=== PATIENT | female | born 1995 | race Caucasian/White ===

== ENCOUNTER 2020-07-09 15:55 | Emergency (ER) | payer MEDICAID, SELFPAY ==
[2020-07-09 16:21] VITALS: BP 142/75; PULSE 97; RESP 16; TEMP 36.8; O2SAT 100; BMI 30.4
[2020-07-09] MEDS: oxyCODONE HCl Immed Release 5 MG TABLET PO (19:10)
[2020-07-09] MEDS: Amoxicillin/Potassium Clav 875 MG TABLET PO (19:10)
[2020-07-09] MEDS: Lidocaine HCl 2 % MPF 5 ML VIAL 10 ML SUBCUT (19:11)
--- NOTE | 2020-07-09 19:21 | ED.SKABFB ---
HPI - Skin/Abscess/Foreign Bdy General Chief complaint: Skin/Abscess/Foreign Body Stated complaint: abcess Time Seen by Provider: 07/09/20 17:49 Source: patient Mode of arrival: ambulatory Limitations: other (Hearing impaired, requires seismic interpreter) History of Present Illness HPI narrative: 25-year-old female with no significant past medical history, hearing impaired requires seismic interpreter, presents from urgent care for abscess to the left labia. She noticed swelling 3 days ago, this is the 1st time she has ever had an abscess, and presents today because the pain and swelling has increased. The pain is so great that she cannot wear pants. She does not report any fevers, chills, risk for sexually transmitted infection, chest pain or pressure, palpitations, shortness of breath, abdominal pain, abdominal distention, dysuria, hematuria, nausea, vomiting, diarrhea, constipation, or any other concerning symptoms. MD complaint: abscess/boil Onset (ago): day(s) (3) Tetanus up to date: yes Location: genitals Severity: severe Severity scale (1-10): 10 Quality: burning, aching and constant Pain Consistency: constant Relieving factors: none Exacerbating factors: palpation and movement Context: none Associated symptoms: denies other symptoms Treatments prior to arrival: other (Urgent care visit) Related Data Previous Rx's Medication Instructions Recorded amoxicillin-pot clavulanate 1 tab PO Q12H 10 Days #20 tab 07/09/20 [Augmentin] doxycycline monohydrate 100 mg PO BID 10 Days #20 cap 07/09/20 oxycodone 5 mg PO Q8H PRN #10 tab 07/09/20 Allergies Allergy/AdvReac Type Severity Reaction Status Date / Time No Known Allergies Allergy Verified 07/09/20 16:25 [No Known Allergies*] Review of Systems Review of Systems: Constitutional: No Fever, No Chills ENT/Mouth: No sore throat, No Rhinorrhea Eyes: No Eye Pain, No Swelling, No Redness Cardiovascular: No Chest Pain, No SOB Respiratory: No Cough, No Sputum Gastrointestinal: No Nausea, No Vomiting, No Diarrhea, No abdominal Pain Genitourinary: No Dysuria, No Hematuria Musculoskeletal: No joint pain, No Myalgias, No Joint Swelling Skin: Positive abscess and swelling to the left groin, No Skin Lesions Neuro: No Weakness, No Numbness, No Loss of Consciousness, No Dizziness, No Headache Psych: No Anxiety, No Depression, No SI/HI/AH/VH Heme/Lymph: No Bruising, No Bleeding,No Lymphadenopathy Endocrine: No Polyuria, No Polydipsia Yes all other systems are reviewed and are negative [facility] Past Medical History Attestation statement: The following information was validated with the patient. Source: old records reviewed Medical History Deaf Social History Social History Advance Directives: No Advance Directives Information Provided: Yes Physical Exam Vital Signs: Vital Signs: Last Vital Signs Temp 98.2 F 07/09/20 16:21 Pulse 97 07/09/20 16:21 Resp 16 07/09/20 16:21 BP 142/75 H 07/09/20 16:21 Pulse Ox 100 07/09/20 16:21 Body Mass Index 30.4 Appearance: Alert. Oriented X3. No acute distress. Eyes: Pupils equal, round and reactive to light. ENT: Pharynx normal. Neck: Normal inspection. Neck supple. CVS: Normal heart rate and rhythm. Pulses normal. Respiratory: No respiratory distress. Breath sounds normal. Abdomen: Soft and nontender. Skin: 5 cm x 6 cm area of induration to the left groin, does involve the labia majora without involving the labia minora, otherwise all other Skin warm and dry. Normal skin color. Normal skin turgor. Extremities: No lower extremity edema. Neuro: No motor deficit. No sensory deficit. Course Course Course Narrative: 25-year-old female presents with cellulitis and abscess to the left groin. Plan of care is to I&D and packed the area. Patient is hard of hearing, seismic interpreter at bedside throughout her entire duration in the emergency department. Prepped and draped in sterile fashion, Patient tolerated procedure well, did have some pain during initial exam which alleviated after lidocaine. Patient will return in 4 days to have packing removed. Does understand complications with doxycycline and sun exposure, and was able to articulate signs and symptoms indicating need for emergent intervention. Patient indicated understanding of discharge instructions and agrees to plan of care discharge home. Procedures Abscess I/D Site: other (Groin) Side (if applicable): left Local Anesthetic: lidocaine 2% Amount of anesthesia used (mL): 10 Technique: incised with blade Amount of fluid expressed (mL): 20 Sent for culture/gram staining?: Yes Irrigation: No Packing used?: iodoform Complications: pain MDM - Skin/Abscess/Foreign Bdy Differential Diagnosis Differential diagnosis: Likely abscess of skin or subcutaneous tissue Medical Records Attestation: I reviewed the patient's medical records. Discharge Plan Discharge Clinical Impression: Encounter for incision and drainage procedure Cellulitis Qualifiers: Site of cellulitis: other site Qualified Code(s): L03.818 - Cellulitis of other sites Abscess of skin or subcutaneous tissue Qualifiers: Site of cutaneous abscess: other site Qualified Code(s): L02.818 - Cutaneous abscess of other sites Patient Disposition: Home, Self-Care Instructions: Cellulitis (ED), Abscess (ED), Abscess Follow-up (ED), Abscess Incision and Drainage (DC) Additional Instructions: You were evaluated for swelling to the left groin. You had a large abscess which we drained and packed. Please keep the packing in place until you return in 3 days for packing removal. You may change the dressing as needed, you may expect fluid to continue to drain from that site. Do not soak in a tub, swim, or expose the area to water for long periods of time. You may shower, and clean with soap and water. I prescribed doxycycline and Augmentin. These medications are antibiotics. Please take these medications as directed and complete the entire course. Do not expose yourself to the sunshine. When you take doxycycline, a normal side of effect of this medication is a significant skin reaction when exposed to sun. Please wear a hat, and long sleeves if planning on going outdoors while taking this medication. I prescribed oxycodone for pain management. This medication is a narcotic and has high risk for addiction and abuse. Do not drive or operate machinery while taking this medication. Medication can increase risk for falls, cause drowsiness, and delayed reaction time. Do not make important decisions while taking this medication. This medication can also cause constipation. Use MiraLax and/or Colace as needed to help soften stools. Drink plenty of fluids. If you notice fevers, chills, nausea, and vomiting or any other concerning symptoms please return to the emergency department immediately as these are signs indicating infection. Thank you for choosing this emergency department for evaluation. Please follow-up with primary care physician as needed. Return to the emergency department for any new, concerning, or worsening symptoms. Prescriptions: New oxycodone 5 mg tablet 5 mg PO Q8H PRN (Reason: pain) Qty: 10 RF: 0 amoxicillin-pot clavulanate [Augmentin] 875-125 mg tablet 1 tab PO Q12H 10 Days Qty: 20 RF: 0 doxycycline monohydrate 100 mg capsule 100 mg PO BID 10 Days Qty: 20 RF: 0
== END 2020-07-09 19:43 | disposition home or self-care (01) ==
PROVIDERS: Emergency Provider Emergency Medicine; PCP Family Medicine
DX: L02.214 Cutaneous abscess of groin (principal); L03.314 Cellulitis of groin
CPT/HCPCS: 10060; 87071; 87205; 99284

== ENCOUNTER 2020-07-13 13:10 | Emergency (ER) | payer MEDICAID, SELFPAY ==
[2020-07-13 13:14] VITALS: BP 136/77; PULSE 93; RESP 18; TEMP 37.2; O2SAT 99; BMI 30.4
--- NOTE | 2020-07-13 13:26 | PC.NURSE ---
PT HERE FOR WOUND CHECK TO HEATHER AREA THAT HAS SOME PACKING THAT MAY BE FALLING OUT. PT STATES THIS MORNING SHE DID NOT EAT AND TOOK AN OXYCODONE, FELT NAUSEAS AND FELT DIZZY AND FELL HITTING HER NOSE AND FOREHEAD. NO LOC. NO LACERATIONS OR BRUISING NOTED TO FACE.
--- NOTE | 2020-07-13 14:33 | PC.NURSE ---
ASSISTED PA JIA WITH REMOVAL OF PACKING FROM HEATHER AREA. PT TOLERATED PROCEDURE WELL. NO SIGNS OF INFECTION, NO FOUL DISCHARGE OR SWELLING.
--- NOTE | 2020-07-13 14:33 | ED.SKABFB ---
HPI - Skin/Abscess/Foreign Bdy General Chief complaint: Skin/Abscess/Foreign Body Stated complaint: WOUND CHECK AND FALL Time Seen by Provider: 07/13/20 14:33 History of Present Illness HPI narrative: Patient presents for packing removal wound check of perineal abscess that was drained 2 days ago, patient says it is feeling very improved, no fever no chills Related Data Previous Rx's Medication Instructions Recorded amoxicillin-pot clavulanate 1 tab PO Q12H 10 Days #20 tab 07/09/20 [Augmentin] doxycycline monohydrate 100 mg PO BID 10 Days #20 cap 07/09/20 oxycodone 5 mg PO Q8H PRN #10 tab 07/09/20 Allergies Allergy/AdvReac Type Severity Reaction Status Date / Time No Known Allergies Allergy Verified 07/09/20 16:25 [No Known Allergies*] Review of Systems Review of Systems: Here for wound check Negatives are no fever no chills no dizziness no weakness no increased pain and swelling no spreading redness no abdominal pain no dysuria Yes all other systems are reviewed and are negative [facility] Past Medical History Source: nursing notes reviewed Medical History Deaf Social History Social History Advance Directives: No Advance Directives Information Provided: No Physical Exam Vital Signs: Vital Signs: Last Vital Signs Temp 98.9 F 07/13/20 13:14 Pulse 93 07/13/20 13:14 Resp 18 07/13/20 13:14 BP 136/77 07/13/20 13:14 Pulse Ox 99 07/13/20 13:14 Body Mass Index 30.4 General appearance no acute distress A&O x3 Head is normocephalic atraumatic Neck is supple Abdomen soft nontender The perineal exam shows packing in place, no fluctuance no surrounding erythema no other lesions or wounds Extremities full range of motion x4 Course Course Course Narrative: Packing is removed and new dressing applied and patient is discharged The wound had no fluctuance no significant discharge when expressed and no evidence of surrounding cellulitis Discharge Plan Discharge Clinical Impression: Visit for wound check Patient Disposition: Home, Self-Care Additional Instructions: Wound looks very improved Okay to warm soaks in bathtub Return any time for spreading redness, worse pain and swelling, fever, any worse condition or any concerns Complete all antibiotics Prescriptions: No Action oxycodone 5 mg tablet 5 mg PO Q8H PRN (Reason: pain) Qty: 10 RF: 0 amoxicillin-pot clavulanate [Augmentin] 875-125 mg tablet 1 tab PO Q12H 10 Days Qty: 20 RF: 0 doxycycline monohydrate 100 mg capsule 100 mg PO BID 10 Days Qty: 20 RF: 0
[2020-07-13] MEDS: oxyCODONE HCl Immed Release 5 MG TABLET PO (14:42)
[2020-07-13] MEDS: Ibuprofen 600 MG TABLET PO (14:42)
== END 2020-07-13 14:50 | disposition home or self-care (01) ==
PROVIDERS: Emergency Provider Emergency Medicine; PCP Family Medicine
DX: Z48.00 Encounter for change or removal of nonsurgical wound dressing (principal); Z79.899 Other long term (current) drug therapy
CPT/HCPCS: 99284

== ENCOUNTER 2021-11-29 13:38 | Emergency (ER) | payer MEDICAID, SELFPAY ==
--- NOTE | ~2021-11-29 | US_ITS ---
EXAMINATION: US DIAGNOSTIC ULTRASOUND BREAST, RIGHT CLINICAL INFORMATION: Breast pain. COMPARISON: None. TECHNIQUE: Ultrasound of the breast is performed with real-time adams scale imaging and color Doppler. FINDINGS: The patient directs the toys and games hand finisher to 11:00, 1 cm from nipple. This exam demonstrates a complex solid cystic structure. Measurement 2.1 x 0.8 x 2.9 cm. There is peripheral vascularity but no convincing evidence of increased vascularity on the imaging submitted. The lesion is characterized by more solid internal appearance with peripheral fluid density. This could represent a markedly dilated duct US/US breast RT limited IMPRESSION: Abnormality where the patient directs the toys and games hand finisher. A mixed solid cystic lesion of uncertain etiology ASSESSMENT: BI-RADS 4: Suspicious RECOMMENDATION: Ultrasonographic biopsy/drainage This patient's information was entered into a reminder system with a target due date for their next mammogram.
[2021-11-29 14:10] VITALS: BMI 25.0
--- NOTE | 2021-11-29 14:10 | ECG_ITS ---
Test Reason : CHEST PAIN Blood Pressure : / mmHG Vent. Rate : 070 BPM Atrial Rate : 070 BPM P-R Int : 132 ms QRS Dur : 080 ms QT Int : 406 ms P-R-T Axes : 059 058 059 degrees QTc Int : 438 ms Normal sinus rhythm with sinus arrhythmia Normal ECG No previous ECGs available Referred By: Generic ED Physician Electronically Signed By:SONAL CARL
[2021-11-29 14:21] VITALS: BP 107/72; PULSE 85; RESP 18; TEMP 36.7; O2SAT 100; BMI 25.0
--- NOTE | 2021-11-29 16:00 | ED_ITS ---
HPI - Chest Pain General Chief Complaint: Chest Pain Stated Complaint: CHEST PAIN Time Seen by Provider: 11/29/21 15:16 Source: patient Mode of arrival: ambulatory Limitations: language barrier ( [place] sign language chief medical officer utilized) History of Present Illness HPI narrative: patient presents emergency department for evaluation of pain to the breast. Reports that she has been having intermittent breast pain since the past 3 months. She developed a painful red and warm lump that eventually will drain pus from it. Currently she has a lump to the right breast that is painful, hard to the touch, First noticed about 24 hours ago. denies any fevers, chills, lesions or wounds to additional parts of her body, nipple drainage, axillary pain. Related Data Previous Rx's Medication Instructions Recorded amoxicillin 875 mg-potassium 1 tab PO Q12H 10 days #20 tabs 07/09/20 clavulanate 125 mg tablet (Augmentin) doxycycline monohydrate 100 mg 100 mg PO BID 10 days #20 caps 07/09/20 capsule oxycodone 5 mg tablet 5 mg PO Q8H PRN pain #10 tabs 07/09/20 cephalexin 500 mg capsule 500 mg PO QID 7 days #28 caps 11/29/21 doxycycline hyclate 100 mg tablet 100 mg PO BID 7 days #14 tabs 11/29/21 Allergies Allergy/AdvReac Type Severity Reaction Status Date / Time No Known Allergies Allergy Verified 07/09/20 16:25 [No Known Allergies*] Review of Systems Review of Systems: Constitutional: No weight loss, fever, chills, weakness or fatigue. Skin: No rash or itching. breast: as noted in HPI Cardiovascular: No chest pain, chest pressure or chest discomfort. No palpitations Respiratory: No shortness of breath Gastrointestinal: No nausea, vomiting or diarrhea. No abdominal pain Genitourinary: No burning micturition. No urinary frequency or incontinence. Musculoskeletal: No muscle pain, back pain, joint pain or stiffness. Psychiatric: No depression or anxiety. Yes all other systems are reviewed and are negative [facility] Past Medical History Attestation statement: The following information was validated with the patient. Source: old records reviewed Medical History Deaf Social History Social History (Reviewed 11/29/21 @ 16:03 by CITLALLI Orosco Advance Directives: No Advance Directives Information Provided: No Physical Exam Vital Signs: Vital Signs: Last Vital Signs Temp 98.0 F 11/29/21 14:21 Pulse 74 11/29/21 18:30 Resp 12 11/29/21 18:30 BP 109/64 11/29/21 18:30 Pulse Ox 99 11/29/21 18:30 O2 Del Method 11/29/21 18:30 BMI result Body Mass Index 25.0 Appearance: Alert.?Oriented to person, place and time. No acute distress.?Normal affect. Neck: Normal inspection.? Neck supple.?? breast: right breast with erythema, warmth, palpable induration surrounding the lateral areola at approximately 03:00 o'clock to 10:00 o'clock. left breast with scabbed lesion to the medial areola 07:00 o'clock. no axillary adenopathy CVS: Heart sounds normal. Normal heart rate and rhythm.? Pulses normal.?? Respiratory: No respiratory distress.? Lung sounds clear to auscultation bilaterally?? Abdomen: Soft and non-tender. ? Skin: Skin warm and dry.? Normal skin color.? Extremities: No lower extremity edema.? Neuro: Moves all extremities spontaneously. Sensation intact bilaterally. Ambulates with normal steady gait. Course Course Course Narrative: patient is a 26-year-old female with no significant past medical history presents emergency department for evaluation title of recurrent abscesses to the bilateral breasts. Currently with what appears to be early abscess with surrounding erythema to the right breast, significantly tender to touch and warm. Ultrasound reveals A mixed solid cystic lesion of uncertain etiology, suspicious finding with recommendations for ultrasound-guided biopsy/ drainage. Patient denies any personal history of breast cancer. Denies any family history of breast, cervical, or ovarian cancers. Consulted with General surgery, Dr. Borrero, recommends the [facility] last biopsy and follow-up with General surgery after the aspiration. Patient made aware of these findings. For now will discharge patient with prescription for cephalexin and doxycycline to cover infectious process with concern for cellulitis, and naproxen for pain. Reviewed worsening signs and symptoms to return back to emergency department for. All questions were answered, patient discharged stable condition. MDM - Chest Pain Medical Records Data Attestation: I reviewed the patient's medical records. Discharge Plan Discharge Clinical Impression: Cyst, breast Qualifiers: Laterality: right Qualified Code(s): N60.01 - Solitary cyst of right breast Patient Disposition: Home, Self-Care Additional Instructions: [facility], 12[facility]01/2021 to arrange for an appointment. here you will have the drainage/ aspiration/biopsy. [facility] [phone] After this you will follow up at the general surgeon's office, You will need to contact their office after the drainage to schedule an appointment General surgery [phone] you have been given prescriptions for 2 antibiotics, please complete this entire course intake as instructed. You may take naproxen twice daily for pain. Do not take additional obop-rit-lhxsvga medications such as ibuprofen/ Motrin /Advil /Aleve while taking this medication. Return to the emergency department any new or worsening symptoms or concerns. Prescriptions: New cephalexin 500 mg capsule 500 mg PO QID 7 Days Qty: 28 0RF doxycycline hyclate 100 mg tablet 100 mg PO BID 7 Days Qty: 14 0RF No Action oxycodone 5 mg tablet 5 mg PO Q8H PRN (Reason: pain) Qty: 10 0RF amoxicillin-pot clavulanate [Augmentin] 875-125 mg tablet 1 tab PO Q12H 10 Days Qty: 20 0RF doxycycline monohydrate 100 mg capsule 100 mg PO BID 10 Days Qty: 20 0RF
[2021-11-29 18:30] VITALS: BP 109/64; PULSE 74; RESP 12; O2SAT 99
[2021-11-29] MEDS: cephALEXin 500 MG CAPSULE PO (18:43)
== END 2021-11-29 18:45 | disposition home or self-care (01) ==
PROVIDERS: Emergency Provider Internal Medicine; PCP Family Medicine
DX: N60.01 Solitary cyst of right breast (principal); N64.4 Mastodynia
CPT/HCPCS: 76642; 93005; 99284

== ENCOUNTER → 2022-01-02 09:45 | Outpatient (BNVA) | payer MEDICAID, SELFPAY | PROVIDERS: PCP Family Medicine; Visit Provider Surgery | DX: N60.01 Solitary cyst of right breast (principal); N60.02 Solitary cyst of left breast; N61.1 Abscess of the breast and nipple | CPT/HCPCS: 99202 ==

== ENCOUNTER → 2022-01-16 11:13 | Outpatient (BNVA) | payer MEDICAID, SELFPAY | PROVIDERS: PCP Family Medicine; Visit Provider Surgery | DX: N64.89 Other specified disorders of breast (principal) | CPT/HCPCS: 99212 ==

== ENCOUNTER 2022-01-28 09:44 | Day surgery (SDC) | payer MEDICAID, SELFPAY ==
--- NOTE | 2022-01-27 08:36 | HO.ANESPROP2 ---
Documented by User: Mackenzie Arora NP 01/27/22 08:37 HPI - Anesthesia Eval Consult details Narrative: 26yo F for Left Excision Breast of Lactiferous Duct PMFSH Active Problems Active Problems: All Active Problems (Updated 01/02/22 @ 10:21 by Braydon Schulte MD) Occlusion of lactiferous duct of right breast (Acute) Occlusion of lactiferous duct of left breast (Acute) Past Medical History Medical History Deaf Family History Family History Other Unknown family medical history Social History Social History Alcohol intake: current Alcohol intake frequency: holidays/special occasions only Patient Tobacco Use Status: Never used Tobacco Meds Allergies Allergy/AdvReac Type Severity Reaction Status Date / Time No Known Allergies Allergy Verified 01/02/22 09:59 [No Known Allergies*] Exam Exam Date and Time: January 27, 2022 0836 Narrative Narrative: EKG 11/2021 Vent. Rate : 070 BPM ? ? Atrial Rate : 070 BPM ?? P-R Int : 132 ms? QRS Dur : 080 ms ? ? QT Int : 406 ms ? ? ? P-R-T Axes : 059 058 059 degrees ?? QTc Int : 438 ms ? Normal sinus rhythm with sinus arrhythmia Normal ECG No previous ECGs available Assessment and Plan Assessment Anesthesia Assessment: Chart Reviewed Documented by User: Magdaleno Holloway MD 01/28/22 18:49 PMFSH Past Medical History Medical History Deaf Functional capacity: independent ambulation Family History Family History Other Unknown family medical history Family history of problems with anesthesia: Unobtainable Surgical History History of Problems with Anesthesia: No Social History Social History Alcohol intake: current Alcohol intake frequency: holidays/special occasions only Patient Tobacco Use Status: Never used Tobacco Meds Allergies Allergy/AdvReac Type Severity Reaction Status Date / Time No Known Allergies Allergy Verified 01/02/22 09:59 [No Known Allergies*] Exam Airway Mallampati Class: IV TM Dist: >3cm Neck ROM: Full Loose/Missing/Broken Teeth: Yes Heart: S1,S2 Lungs: b/l breath sounds Assessment and Plan Assessment Anesthesia Assessment: Anesthesia Plan Discussed Final Anesthetic Review Family History of Problems with Anesthesia: Unobtainable History of Problems with Anesthesia: No NPO: Yes ASA Class: II Final Preanesthetic Review: Meds/Allgs Chart Reviewed, Consent Obtained/Reviewed and Anes Risks/Benef Reviewed Patient Risk: Intermediate Procedure Risk: Intermediate Anesthetic Plan Anesthetic Plan: GA Disposition: Standard PACU
[2022-01-28] VITALS (11 sets, daily range): BP systolic 115–126; BP diastolic 58–72; PULSE 60–107; RESP 14–20; TEMP 36.3–36.6; O2SAT 97–100; BMI 29.7
[2022-01-28 10:14] LABS: UPreg QC Valid YES; Urine Pregnancy NEGATIVE (NEGATIVE)
[2022-01-28] MEDS: Lactated Ringers 1,000 ML 100 ML IVCONT (10:46)
--- NOTE | 2022-01-28 11:37 | MHC.SHP ---
Pre-Procedural Eval Section A Date of Service: 01/28/22 The patient is an INPATIENT: No Changes since office visit: Yes Patient answered all questions; No Cold of Flu in the past 2 weeks, No New Medical Problems and No Changes in Medication The History & Physical has been completed within 30 days and I have reviewed it.: Yes Section B Chief Complaint: Other specified disorders of breast Allergies: Allergies Allergy/AdvReac Type Severity Reaction Status Date / Time No Known Allergies Allergy Verified 01/02/22 09:59 [No Known Allergies*] Plan Diagnosis/Plan: Unchanged I have reviewed the history and physical and performed a pertinent physical examination on my patient. No changes have occurred unless specified.
--- NOTE | 2022-01-28 12:31 | W.PM.OPN ---
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 Operative findings: Lactiferous duct abscess involving the left breast 7- 8 o'clock Specimen: left breast Lactiferpos duct Estimated blood loss:5 ml Complications:none Procedure details: Patient was brought to the OR placed in a supine position. After administering general anesthesia left breast was prepped with Betadine and draped in a sterile fashion. A surgical time-out was called the consent confirmed. Patient received preoperative antibiotics and Venodyne boots were in place. Local anesthesia consisting of 0.5% Sensorcaine with epinephrine was then infiltrated around the external skin lesion in the 7 o'clock position in elliptical fashion. Elliptical incision was then made to include the external fistula opening. This measured approximately 1.5 cm in diameter. This was carried out through subcutaneous tissue. Sharp dissection was then used to dissect the fistula under the nipple-areolar complex up to the base of the nipple. The fistulous tract was then excised at this point. Hemostasis was assured using electrocautery. The wounds were then thoroughly irrigated with saline solution and suctioned dry. The wounds were again checked for hemostasis. Deep breast tissue was then reapproximated using interrupted 3-0 Polysorb sutures. Dermis was reapproximated using interrupted 3-0 Polysorb sutures. Skin was closed using a running subcuticular 4-0 Polysorb suture. Steri-Strips, 2 x 2 gauze and Tegaderm were then applied. The patient tolerated the procedure well. Sponge, instrument, and needle counts were reported as correct. Patient was transferred to PACU in stable condition.
[2022-01-28] MEDS: fentaNYL citrate/PF 100 MCG/2 ML VIAL 25 MCG IVPUSH (13:45)
[2022-01-28] MEDS: oxyCODONE HCl Immed Release 5 MG TABLET PO (13:45)
[2022-01-28] MEDS: Acetaminophen 325 MG TABLET 650 MG PO (13:46)
== END 2022-01-28 15:26 | disposition home or self-care (01) ==
PROVIDERS: Nurse Practitioner; PCP Family Medicine; Visit Provider Surgery
PROC: (CPT 19112; principal; 2022-01-28 10:50)
DX: N64.89 Other specified disorders of breast (principal); H91.90 Unspecified hearing loss, unspecified ear
CPT/HCPCS: 19120; 81025; 88305; 88307; J0690; J1100; J2250; J2370; J2405; J2795; J3010

== ENCOUNTER → 2022-03-17 13:46 | Outpatient (BNVA) | payer MEDICAID, SELFPAY | PROVIDERS: PCP Family Medicine; Visit Provider Surgery | DX: N61.1 Abscess of the breast and nipple (principal) | CPT/HCPCS: 99212 ==

== ENCOUNTER → 2022-04-16 14:27 | Outpatient (BNVA) | payer MEDICAID, SELFPAY | PROVIDERS: PCP Family Medicine; Visit Provider Physician Assistant Surgical | DX: Z98.890 Other specified postprocedural states (principal) | CPT/HCPCS: 99212 ==

== ENCOUNTER → 2022-05-14 13:53 | Outpatient (BNVA) | payer MEDICAID, SELFPAY | PROVIDERS: PCP Family Medicine; Visit Provider Surgery | DX: N61.1 Abscess of the breast and nipple (principal) | CPT/HCPCS: 99212 ==

== ENCOUNTER 2022-06-04 12:38 | Emergency (ER) | payer MEDICAID, SELFPAY ==
--- NOTE | ~2022-06-04 | US_ITS ---
EXAMINATION: US DIAGNOSTIC ULTRASOUND BREAST, RIGHT CLINICAL INFORMATION: 27-year-old with right breast pain, emergency room visit. COMPARISON: Diagnostic right breast ultrasound 11/29/2021. TECHNIQUE: Ultrasound right breast is targeted to the areas of clinical concern. Grayscale imaging and color Doppler are performed. Exam performed at Hospital by drive thru order taker, emergency room visit. FINDINGS: The submitted images demonstrate no breast parenchymal cystic or solid mass, architectural abnormality, or focal duct ectasia. No skin thickening or edema tracking in soft tissue planes. There is some crescent-shaped decreased echogenicity immediately beneath the nipple likely artifactual. US/US breast RT complete IMPRESSION: -Submitted images show no abscess or mass. -Intradermal hypoechogenicity immediately beneath the nipple likely artifactual. ASSESSMENT: BI-RADS 3: Probably Benign RECOMMENDATION: -Patient should be managed based on the clinical impression. -If clinically indicated, further evaluation may be considered with surgical consult.
[2022-06-04 13:12] VITALS: BP 112/70; PULSE 85; RESP 16; TEMP 36.6; O2SAT 100; BMI 27.3
--- NOTE | 2022-06-04 13:16 | ED.GENADULT ---
HPI - General Adult General Chief complaint: Skin/Abscess/Foreign Body <Mac Muhammad - Last Filed: 06/04/22 13:18> Stated complaint: abscess <Mac Muhammad - Last Filed: 06/04/22 13:18> Time Seen by Provider: 06/04/22 14:06 <Mac Muhammad - Last Filed: 06/04/22 13:18> Source: patient <CLAUDY Irizarry - Last Filed: 06/05/22 11:50> Mode of arrival: ambulatory <CLAUDY Irizarry - Last Filed: 06/05/22 11:50> Limitations: language barrier (Surinamese sign language medical administrative assistant used) <CLAUDY Irizarry - Last Filed: 06/05/22 11:50> History of Present Illness HPI narrative: 27-year-old female with a past medical history breast abscesses presenting to the ED complaining of 2 right breast abscess worsening over the past week with associated pain, swelling, and drainage from upper abscess. Denies fever, chills, nipple discharge, CP/SOB, recent antibiotic <CLAUDY Irizarry - Last Filed: 06/05/22 11:50> Onset (ago): day(s) <CLAUDY Irizarry - Last Filed: 06/05/22 11:50> Related Data Home medications: Previous Rx's Medication Instructions Recorded cephalexin 500 mg capsule 500 mg PO QID 7 days #28 caps 06/04/22 doxycycline hyclate 100 mg tablet 100 mg PO BID 7 days #14 tabs 06/04/22 <Mac Muhammad - Last Filed: 06/04/22 13:18> Allergies/adverse reactions: Allergies Allergy/AdvReac Type Severity Reaction Status Date / Time No Known Allergies Allergy Verified 06/04/22 13:19 [No Known Allergies*] <Mac Muhammad - Last Filed: 06/04/22 13:18> Review of Systems Review of Systems: Constitutional: No Fever, No Chills ENT/Mouth: No Ear Pain, No Nasal Congestion, No sore throat, No Rhinorrhea, No Swallowing Difficulty Cardiovascular: No Chest Pain, No SOB Respiratory: No Cough, No Sputum Gastrointestinal: No Nausea, No Vomiting, No Diarrhea, No Constipation, No Abdominal pain Musculoskeletal: No joint pain, No Myalgias, No Joint Swelling Skin: +Skin Lesions, No rash Neuro: No Weakness, No Numbness, No Paresthesias <CLAUDY Irizarry - Last Filed: 06/05/22 11:50> Yes all other systems are reviewed and are negative <CLAUDY Irizarry - Last Filed: 06/05/22 11:50> Constitutional: Constitutional: Reports as per HPI <CLAUDY Irizarry - Last Filed: 06/05/22 11:50> [facility] Past Medical History Attestation statement: The following information was validated with the patient. <CLAUDY Irizarry - Last Filed: 06/05/22 11:50> Medical History: Medical History Deaf <Mac Muhammad - Last Filed: 06/04/22 13:18> Surgical History: Surgical History Hx of breast surgery (01/28/22) <Mac Muhammad - Last Filed: 06/04/22 13:18> Family History Family History: Family History Other Unknown family medical history <Mac Muhammad - Last Filed: 06/04/22 13:18> Social History Social History: Social History Alcohol intake: current Alcohol intake frequency: holidays/special occasions only Patient Tobacco Use Status: Never used Tobacco <Mac Muhammad - Last Filed: 06/04/22 13:18> Physical Exam ED Vital Signs: Vital Signs - 24 hr 06/04/22 13:12 Temperature 97.9 F Pulse Rate 85 Respiratory Rate 16 Blood Pressure 112/70 Pulse Oximetry 100 Oxygen Delivery Method Room Air BMI result Body Mass Index 27.3 <Mac Muhammad - Last Filed: 06/04/22 13:18> Vital Signs - 24 hr 06/04/22 13:12 Temperature 97.9 F Pulse Rate 85 Respiratory Rate 16 Blood Pressure 112/70 Pulse Oximetry 100 Oxygen Delivery Method Room Air BMI result Body Mass Index 27.3 <CLAUDY Irizarry - Last Filed: 06/05/22 11:50> Const General: cooperative, healthy appearing and no acute distress <CLAUDY Irizarry - Last Filed: 06/05/22 11:50> Orientation/consciousness: patient oriented x3 <CLAUDY Irizarry - Last Filed: 06/05/22 11:50> Limitations: no limitations <CLAUDY Irizarry - Last Filed: 06/05/22 11:50> HENMT Head: Yes normal to inspection and Yes atraumatic <CLAUDY Irizarry - Last Filed: 06/05/22 11:50> Ears: hearing grossly normal bilaterally <CLAUDY Irizarry - Last Filed: 06/05/22 11:50> General nose exam: Normal external nose present <CLAUDY Irizarry - Last Filed: 06/05/22 11:50> Face and sinus: Yes normal facial exam <CLAUDY Irizarry - Last Filed: 06/05/22 11:50> Eyes General: appearance normal, both eyes and all related structures <CLAUDY Irizarry - Last Filed: 06/05/22 11:50> EOM: EOMs intact bilaterally <CLAUDY Irizarry - Last Filed: 06/05/22 11:50> Neck Neck: Yes normal visual inspection and Yes no meningeal signs <CLAUDY Irizarry - Last Filed: 06/05/22 11:50> Chest Other: Please refer to imaged above. 2 abscesses noted at 11:00 o'clock and 04:00 o'clock region with surrounding erythema and warmth. Diffusely tender to palpation. Scant drainage from upper abscess noted. No focal fluctuance <CLAUDY Irizarry - Last Filed: 06/05/22 11:50> Resp Effort & Inspection: normal respiratory effort and no respiratory distress <CLAUDY Irizarry - Last Filed: 06/05/22 11:50> Auscultation: clear to auscultation bilaterally <CLAUDY Irizarry - Last Filed: 06/05/22 11:50> Cardio Rate: regular rate <CLAUDY Irizarry - Last Filed: 06/05/22 11:50> Heart sounds: S1 normal heart sound present and S2 normal heart sound present <CLAUDY Irizarry - Last Filed: 06/05/22 11:50> GI Inspection: Yes normal to inspection <CLAUDY Irizarry - Last Filed: 06/05/22 11:50> Palpation (GI): Soft to palpation, nontender, no guarding and not rigid <CLAUDY Irizarry - Last Filed: 06/05/22 11:50> Skin Rashes: no rashes <Cyndi Cote PA - Last Filed: 06/05/22 11:50> Wounds: no wounds <CLAUDY Irizarry - Last Filed: 06/05/22 11:50> Neuro General: patient oriented x3, tone normal and no meningeal signs <Cyndi Cote PA - Last Filed: 06/05/22 11:50> Gait exam (Neuro): Normal gait present <CLADUY Irizarry - Last Filed: 06/05/22 11:50> Extrem General: Yes normal to inspection <Cyndi Cote PA - Last Filed: 06/05/22 11:50> Course Course Course Narrative: SUNIL, 27-year-old female presents for evaluation to rupture the cyst to the left breast. Patient reports that she had 2 abscesses rupture 5 days ago on Wednesday. She reports a history of previous surgery in her right breast due to similar issues and is interested in having surgery on the left breast. She saw Dr. Borrero previously and would like a referral back to Dr. Borrero. Patient denies any history of diabetes and denies any antibiotic allergies <Mac Muhammad - Last Filed: 06/04/22 13:18> RME, 27-year-old female presents for evaluation to rupture the cyst to the left breast. Patient reports that she had 2 abscesses rupture 5 days ago on Wednesday. She reports a history of previous surgery in her right breast due to similar issues and is interested in having surgery on the left breast. She saw Dr. Borrero previously and would like a referral back to Dr. Borrero. Patient denies any history of diabetes and denies any antibiotic allergies US breast RT complete IMPRESSION: -Submitted images show no abscess or mass. -Intradermal hypoechogenicity immediately beneath the nipple likely artifactual. ? ASSESSMENT:? BI-RADS 3: Probably Benign ? RECOMMENDATION: -Patient should be managed based on the clinical impression. -If clinically indicated, further evaluation may be considered with surgical consult. >> consulted surgery Dr. Schulte who would like to see patient the office tomorrow. Will discharge home with doxycycline and Keflex. <CLAUDY Irizarry - Last Filed: 06/05/22 11:50> Medical Decision Making Medical Decision Making MDM Narrative: 27-year-old female with a past medical history breast abscesses presenting to the ED complaining of 2 right breast abscess worsening over the past week with associated pain, swelling, and drainage from upper abscess. On exam VSS, NAD, nontoxic appearing, please refer to image above. Concern for deeper abscess vs cellulitis vs cyst. Lower suspicion for breast CA Plan: Breast ultrasound, consult surgery Please refer to course for remaining clinical decision making, interpretation of labs/imaging results, and discussions with consultants and/or family members. <CLAUDY Irizarry - Last Filed: 06/05/22 11:50> Differential Diagnosis Differential Diagnoses: The differential diagnosis associated with the presentation includes <CLAUDY Irizarry - Last Filed: 06/05/22 11:50> As above <CLAUDY Irizarry - Last Filed: 06/05/22 11:50> Admission/Observation Consideration of admission/observation: Escalation of care including admission/observation considered <CLUADY Irizarry - Last Filed: 06/05/22 11:50> Lab Data [facility] Lab Attestation statement: I reviewed the patient's lab results. <CLAUDY Irizarry - Last Filed: 06/05/22 11:50> Radiology Impression Discussion of test interpretation with radiology: I have reviewed the radiologist's reading. <CLAUDY Irizarry - Last Filed: 06/05/22 11:50> External Record Review External record reviewed: Inpatient record, Office record, Outpatient record, Prior outpatient labs, Prior outpatient radiology, Primary care record and Outside ED record <CLAUDY Irizarry - Last Filed: 06/05/22 11:50> Discharge Plan Discharge Clinical Impression: Breast abscess of female, Cellulitis <Mac Muhammad - Last Filed: 06/04/22 13:18> Patient Disposition: Home, Self-Care <Mac Muhammad - Last Filed: 06/04/22 13:18> Instructions: Cellulitis (DC), Warm Compress or Soak (ED) <Mac Muhammad - Last Filed: 06/04/22 13:18> Additional Instructions: Your ultrasound did not appreciate a fluid collection. PLEASE FOLLOW-UP IN DR. SCHULTE OFFICE TOMORROW, THEY SHOULD CALL YOU TO MAKE APPOINTMENT Start taking doxycycline and Keflex which are too antibiotics Apply warm compresses If symptoms persist or worsen have fever, on bearing pain return to the ED <Mac Muhammad - Last Filed: 06/04/22 13:18> Prescriptions: New cephalexin 500 mg capsule 500 mg PO QID 7 Days Qty: 28 0RF doxycycline hyclate 100 mg tablet 100 mg PO BID 7 Days Qty: 14 0RF <Mac Muhammad - Last Filed: 06/04/22 13:18> Referrals: Braydon Schulte MD [Physician] - (tomorrow) <Mac Muhammad - Last Filed: 06/04/22 13:18> Interventions: ED Discharge Assessment Last Done: 06/04/22 18:09 <Mac Muhammad - Last Filed: 06/04/22 13:18> Discharge Date/Time: 06/04/22 18:10 <aMc Muhammad - Last Filed: 06/04/22 13:18>
== END 2022-06-04 18:10 | disposition home or self-care (01) ==
PROVIDERS: Emergency Provider Emergency Medicine; PCP Family Medicine
DX: N61.1 Abscess of the breast and nipple (principal)
CPT/HCPCS: 76641; 99282; 99284

== ENCOUNTER → 2022-06-05 12:57 | Outpatient (BNVA) | payer MEDICAID, SELFPAY | PROVIDERS: PCP Family Medicine; Referring Provider Family Medicine; Visit Provider Surgery | DX: N61.1 Abscess of the breast and nipple (principal) | CPT/HCPCS: 99212 ==

== ENCOUNTER 2022-06-15 06:52 | Day surgery (SDC) | payer MEDICAID, SELFPAY ==
[2022-06-09 10:35] VITALS: BMI 29.7
--- NOTE | 2022-06-12 09:41 | HO.ANESPROP2 ---
Documented by User: Mackenzie Arora NP 06/12/22 09:42 HPI - Anesthesia Eval Consult details Narrative: 27yo F for Right Excision infected Cyst breast s/p Left Excision Breast of Lactiferous Duct 01/2022 with GA-LMA 4 PMFSH Active Problems Active Problems: All Active Problems (Updated 06/09/22 @ 10:31 by Naomy Gipson RN) Occlusion of lactiferous duct of left breast (Acute) Occlusion of lactiferous duct of right breast (Acute) Breast abscess of female (Acute) Hx of breast surgery (Acute 01/28/22) Past Medical History Medical History (Updated 06/09/22 @ 10:30 by Naomy Gipson RN) Hearing impaired Family History Family History Other Unknown family medical history Family history of problems with anesthesia: Unobtainable Surgical History Surgical History (Updated 06/09/22 @ 10:31 by Naomy Gipson RN) Hx of breast surgery (01/28/22) History of Problems with Anesthesia: No Social History Social History Alcohol intake: current Alcohol intake frequency: holidays/special occasions only Patient Tobacco Use Status: Never used Tobacco Use of substances other than those prescribed or required for medical reasons: No Are you DNR?: No Advance Directives: No Advance Directives Information Provided: Yes Meds Allergies Allergy/AdvReac Type Severity Reaction Status Date / Time No Known Allergies Allergy Verified 06/15/22 07:17 [No Known Allergies*] Exam Exam Date and Time: June 12, 2022 0941 Height,Weight and Vital Signs: Height 5 ft Weight 69.059 kg Narrative Narrative: EKG 11/2021 Vent. Rate : 070 BPM ? ? Atrial Rate : 070 BPM ?? P-R Int : 132 ms? QRS Dur : 080 ms ? ? QT Int : 406 ms ? ? ? P-R-T Axes : 059 058 059 degrees ?? QTc Int : 438 ms ? Normal sinus rhythm with sinus arrhythmia Normal ECG No previous ECGs available Assessment and Plan Assessment Anesthesia Assessment: Chart Reviewed Final Anesthetic Review Family History of Problems with Anesthesia: Unobtainable History of Problems with Anesthesia: No Documented by User: Shanna Arriaga MD 06/15/22 10:45 PMFSH Past Medical History Medical History (Updated 06/09/22 @ 10:30 by Naomy Gipson RN) Hearing impaired Family History Family History Other Unknown family medical history Family history of problems with anesthesia: No Surgical History Surgical History (Updated 06/09/22 @ 10:31 by Naomy Gipson RN) Hx of breast surgery (01/28/22) Social History Social History Alcohol intake: current Alcohol intake frequency: holidays/special occasions only Patient Tobacco Use Status: Never used Tobacco Use of substances other than those prescribed or required for medical reasons: No Are you DNR?: No Advance Directives: No Advance Directives Information Provided: Yes Meds Allergies Allergy/AdvReac Type Severity Reaction Status Date / Time No Known Allergies Allergy Verified 06/15/22 07:17 [No Known Allergies*] Exam Airway Mallampati Class: II TM Dist: >3cm Neck ROM: Full Loose/Missing/Broken Teeth: No Heart: rr Lungs: cta Assessment and Plan Assessment Anesthesia Assessment: Anesthesia Plan Discussed Final Anesthetic Review Family History of Problems with Anesthesia: No NPO: Yes ASA Class: II Final Preanesthetic Review: No Changes in Pt Med Stat, Meds/Allgs Chart Reviewed, Consent Obtained/Reviewed and Anes Risks/Benef Reviewed Patient Risk: Low Anesthetic Plan Anesthetic Plan: GA Disposition: Standard PACU
[2022-06-15] VITALS (8 sets, daily range): BP systolic 108–137; BP diastolic 55–79; PULSE 86–109; RESP 16; TEMP 36.5–37.1; O2SAT 99–100; BMI 29.7
[2022-06-15 07:33] LABS: UPreg QC Valid YES; Urine Pregnancy NEGATIVE (NEGATIVE)
[2022-06-15] MEDS: Lactated Ringers 1,000 ML 100 ML IVCONT (08:00)
--- NOTE | 2022-06-15 08:05 | MHC.SHP ---
Pre-Procedural Eval Section A Date of Service: 06/15/22 The patient is an INPATIENT: No Changes since office visit: Yes Patient answered all questions; No Cold of Flu in the past 2 weeks, No New Medical Problems and No Changes in Medication The History & Physical has been completed within 30 days and I have reviewed it.: Yes Section B Chief Complaint: Abscess of the breast and nipple Allergies: Allergies Allergy/AdvReac Type Severity Reaction Status Date / Time No Known Allergies Allergy Verified 06/15/22 07:17 [No Known Allergies*] Plan I have reviewed the history and physical and performed a pertinent physical examination on my patient. No changes have occurred unless specified. Time Spent With Patient Time: Total time managing care of this patient today ____ minutes.
--- NOTE | 2022-06-15 09:16 | W.PM.OPN ---
Operative Note Operative Note Date of Service: 06/15/22 Narrative: Preoperative diagnosis: Right breast cyst x2 Postoperative diagnosis: same Procedure: excision of right breast cyst x2 Surgeon: Braydon Schulte MD Gear Machine Operator General: Lala Rivera PA-C Anesthesia: general LMA Indications for procedure: 27-year-old female patient with the to 1st duct cyst with infection x2 the right breast presenting for wide excision Operative findings: chronic scarring from previous infections at the 10 and 4 o'clock position right breast Specimen: chronic infected cyst x2 right breast Estimated blood loss: 2 mL Complications: none Procedure details: patient was brought to the OR placed in a supine position. After administering general anesthesia the patient's right breast was prepped with ChloraPrep and draped in a sterile fashion. A surgical time-out was called the consent confirmed. Patient received preoperative antibiotics and Venodyne boots were in place. Local anesthesia was infiltrated circumferentially around the 2 periareolar breast cyst in the skin. No active infection was noted at the time of this procedure. Elliptical incision was made beginning at the 10 o'clock position around the cyst and carried out through subcutaneous tissue and around the cyst wall. Attention was then directed to the 4 o'clock position were again an elliptical incision was made around the cyst and carried out through subcutaneous tissue and around the cyst wall. Both lesions were sent together as cyst right breast x2. Hemostasis was assured using electrocautery. Wounds were irrigated with saline solution and suctioned dry. Dermis was then reapproximated using interrupted 3-0 Polysorb sutures. Skin was closed using a running subcuticular 4-0 Polysorb suture. Steri-Strips, 2 x 2 gauze and Tegaderm were then applied. The patient tolerated the procedure well. Sponge, instrument, and needle counts reported as correct. The patient was transferred to PACU in stable condition.
[2022-06-15] MEDS: oxyCODONE HCl Immed Release 5 MG TABLET PO (10:00)
--- NOTE | 2022-06-15 11:29 | PC.NURSE ---
PATIENT ABLE TO READ LIPS.
== END 2022-06-15 11:31 | disposition home or self-care (01) ==
PROVIDERS: Nurse Practitioner; PCP Family Medicine; Visit Provider Surgery
PROC: (CPT 19120; principal; 2022-06-15 08:40)
DX: N60.11 Diffuse cystic mastopathy of right breast (principal); Z98.890 Other specified postprocedural states; H91.90 Unspecified hearing loss, unspecified ear
CPT/HCPCS: 19120; 81025; 88304; 88305; J0690; J2250; J2405; J3010

== ENCOUNTER → 2022-06-24 13:25 | Outpatient (BNVA) | payer MEDICAID, SELFPAY | PROVIDERS: PCP Family Medicine; Visit Provider Surgery ==

== ENCOUNTER → 2022-07-09 14:48 | Outpatient (BNVA) | payer MEDICAID, SELFPAY | PROVIDERS: PCP Family Medicine; Visit Provider Surgery | DX: N64.89 Other specified disorders of breast (principal); Z79.891 Long term (current) use of opiate analgesic; Z79.899 Other long term (current) drug therapy | CPT/HCPCS: 99212 ==

== ENCOUNTER 2023-03-10 14:59 | Outpatient (AMB) | payer MEDICAID, SELFPAY ==
--- NOTE | 2023-03-10 15:05 | A.OFFVIS_ITS ---
Intake Vital Signs 03/10/23 15:09 Height 5 ft Weight 147 lb BMI 28.7 BP 131/60 Blood Pressure Location Rt brachial Position Sitting Pulse 87 Intake Visit Reasons: Breasts cyst infected (certified court/medical interpreter needed) Intake Note: Patient here c/o infected cysts on Rt breast. Patient c/o: Feels lumpy, a little bit of pain. C/o green discharge. Area of concern was preciously excised by Dr. Schulte. Yeast Culture Operator Required: Yes Yeast Culture Operator Name: GLORIA Morales Accompanied by: translator and interpreter Andrew and betzy Cystalle Allergies No Known Allergies [No Known Allergies*] Allergy (Verified 03/10/23 15:07) HPI HPI Comments History of Present Illness Details Patient is a 28-year-old female longstanding patient Dr. Schulte who 7 multiple breast infections and excisions in the past. She presents here with a 2 week history of right periareolar pain and swelling and in spontaneous drainage over the last few days. She presents here for follow-up. Patient had a sign translator and interpreter with her as well. Although improved, she still has some discomfort over the right areolar area. Chart was reviewed patient evaluated [facility] Medical History Hearing impaired Surgical History Hx of breast surgery (01/28/22) Family History Other Unknown family medical history Social History Alcohol intake: current Alcohol intake frequency: holidays/special occasions only Patient Tobacco Use Status: Never used Tobacco Physical Exam Vital Signs: Last Vital Signs Pulse 87 03/10/23 15:09 BP 131/60 03/10/23 15:09 BMI result Body Mass Index 28.7 Chest Other: Left breast within normal limits. No mass, discharge, adenopathy, or skin changes. Right breast is most noteworthy for a 9 o'clock position area of induration and tenderness. No obvious abscess demonstrated. With gentle pressure, no discharge demonstrated Patient was quite tender so exam was limited. Assessment & Plan Assessment & Plan (1) Breast abscess of female: Code(s): N61.1 - Abscess of the breast and nipple Plan Discussed with the patient that I could attempted needle aspiration to see if there is any underlying undrained area but patient did not want to have the stump. Current plan is to give the patient antibiotics, local wound care informed warm compresses, and have her follow up next week with Dr. Schulte and direct further therapy based on the patient's clinical course and exam next week. All questions answered Coding Level of Care Code New Pt Level 4 (08508) Diagnoses Breast abscess of female N61.1
[2023-03-10 15:09] VITALS: BP 131/60; PULSE 87; BMI 28.7
== END 2023-03-10 15:21 | disposition home or self-care (01) ==
PROVIDERS: PCP Family Medicine; Visit Provider Surgery
DX: N61.1 Abscess of the breast and nipple (principal)
CPT/HCPCS: 99204

== ENCOUNTER → 2023-03-10 14:59 | Outpatient (BNVA) | payer MEDICAID, SELFPAY | PROVIDERS: PCP Family Medicine; Visit Provider Surgery | DX: N61.1 Abscess of the breast and nipple (principal) | CPT/HCPCS: 99202 ==

== ENCOUNTER 2023-03-18 14:33 | Outpatient (AMB) | payer MEDICAID, SELFPAY ==
--- NOTE | 2023-03-18 14:46 | MHC.OFFVIS ---
Intake Vital Signs 03/18/23 14:56 Height 5 ft Weight 147 lb BMI 28.7 BP 132/65 Blood Pressure Location Lt brachial Position Sitting Pulse 85 Intake Visit Reasons: 1 wk follow up breast infection Intake Note: Patient is seen in office for one week follow up visit, breast infection. Patient c/o: is currently on antibiotics, when she started taking them it discharge and currently is not discharging and is a little better Slitter Scorer Required: Yes Slitter Scorer Language: Marshallese Sign Language Accompanied by: Other Relationship Allergies No Known Allergies [No Known Allergies*] Allergy (Verified 03/18/23 15:02) Medication List - Last Reconciled 03/18/23 by Braydon Schulte MD amoxicillin-pot clavulanate 875-125 mg 1 tab PO BID cephalexin 500 mg PO TID HPI HPI Comments History of Present Illness Details 28-year-old female patient returning for evaluation of a right breast abscess located around the nipple-areolar complex. She was seen last week by Dr. Montelongo and started on Keflex 500 mg t.i.d.. She reports some moderate improvement however she continues to note some discharge from the nipple intermittently. There is still some redness in the skin as well. She denies any fever or chills. [facility] Medical History Hearing impaired Surgical History Hx of breast surgery (01/28/22) Family History Other Unknown family medical history Social History Alcohol intake: current Alcohol intake frequency: holidays/special occasions only Patient Tobacco Use Status: Never used Tobacco Review of Systems Const All systems reviewed & are unremarkable except as noted in HPI and below Physical Exam Vital Signs: Last Vital Signs Pulse 85 03/18/23 14:56 BP 132/65 03/18/23 14:56 BMI result Body Mass Index 28.7 Const General: no acute distress Nutritional Appearance: well nourished Orientation/consciousness: patient oriented x3 Limitations: other limitations (Hearing impaired) Chest Other: Right breast examined and an area of thickening noted around the areola with slight surrounding cellulitis. No discharge could be expressed although the site is tender to palpation. There is no definite fluctuance appreciated to indicate underlying abscess. Chest/axillae images: 1. Right breast tenderness and thickening Resp Effort & Inspection: normal respiratory effort Skin General skin exam: erythema (Right nipple-areolar complex as noted above) Neuro General: patient oriented x3 Assessment & Plan Assessment & Plan (1) Breast abscess of female: Code(s): N61.1 - Abscess of the breast and nipple Plan Will change antibiotics to oxacillin and clavulanic acid for 2 weeks. She will return in 2 weeks for follow-up examination. Medications: New amoxicillin-pot clavulanate 875-125 mg 1 tab PO BID 28 tabs 0RF N61.1 - Abscess of the breast and nipple Coding Level of Care Code Est Pt Level 3 (03948) Diagnoses Breast abscess of female N61.1
[2023-03-18 14:56] VITALS: BP 132/65; PULSE 85; BMI 28.7
== END 2023-03-18 15:11 | disposition home or self-care (01) ==
PROVIDERS: PCP Family Medicine; Referring Provider Family Medicine; Visit Provider Surgery
DX: N61.1 Abscess of the breast and nipple (principal)
CPT/HCPCS: 99213

== ENCOUNTER → 2023-03-18 14:33 | Outpatient (BNVA) | payer MEDICAID, SELFPAY | PROVIDERS: PCP Family Medicine; Visit Provider Surgery | DX: N61.1 Abscess of the breast and nipple (principal) | CPT/HCPCS: 99212 ==

== ENCOUNTER 2023-04-01 15:18 | Outpatient (AMB) | payer MEDICAID, SELFPAY ==
--- NOTE | 2023-04-01 15:24 | MHC.OFFVIS ---
Intake Vital Signs 04/01/23 15:29 Height 5 ft Weight 148 lb BMI 28.9 BP 142/64 H Blood Pressure Location Lt brachial Position Sitting Pulse 89 Intake Visit Reasons: 2 wk follow up breast infection Intake Note: Patient is seen in office for 2 week follow up visit, following breast infection. Patient c/o: lump has decrease no discharge, medication is helping, still has a couple of the antibiotics left Talent Acquisition Program Manager Required: Yes Talent Acquisition Program Manager Language: Optomechanical Engineer Name: Andrew [facility] Information Interpreted: non-clinical & clinical Switchboard Clerk: Switchboard Clerk Present Allergies No Known Allergies [No Known Allergies*] Allergy (Verified 04/01/23 15:29) Medication List - Last Reconciled 04/01/23 by Braydon Schulte MD amoxicillin-pot clavulanate 875-125 mg 1 tab PO BID HPI HPI Comments History of Present Illness Details 28-year-old female patient returning for evaluation of a right breast abscess located around the nipple-areolar complex. She reports feeling improved with the new antibiotic with decreased pain and decreased redness. There is still a small area of firmness below the nipple but this is much smaller than previously seen. She denies any discharge from the nipple. She is tolerating the Augmentin without any side effects. COUNT INCLUDES THE [facility] Medical History Hearing impaired Surgical History Hx of breast surgery (01/28/22) Family History Other Unknown family medical history Social History Alcohol intake: current Alcohol intake frequency: holidays/special occasions only Patient Tobacco Use Status: Never used Tobacco Review of Systems Const All systems reviewed & are unremarkable except as noted in HPI and below Physical Exam Const General: no acute distress Nutritional Appearance: well nourished Orientation/consciousness: patient oriented x3 Limitations: other limitations (Hearing impaired) Chest Other: Right breast reveals no further erythema. There is no tenderness to deep palpation. A residual area of inflammation is noted below the areola but no fluctuance to indicate underlying abscess. Resp Effort & Inspection: normal respiratory effort Skin Other: Warm, dry, no rash General skin exam: erythema (Right nipple-areolar complex as noted above) Neuro General: patient oriented x3 Assessment & Plan Assessment & Plan (1) Breast abscess of female: Code(s): N61.1 - Abscess of the breast and nipple Plan Will continue the antibiotics and have patient return approximately 1 month for follow-up examination. She is welcome to call sooner for any new concerns. Medications: Refilled amoxicillin-pot clavulanate 875-125 mg 1 tab PO BID 28 tabs 0RF N61.1 - Abscess of the breast and nipple Coding Level of Care Code Est Pt Level 3 (31561) Diagnoses Breast abscess of female N61.1
[2023-04-01 15:29] VITALS: BP 142/64; PULSE 89; BMI 28.9
== END 2023-04-01 15:35 | disposition home or self-care (01) ==
PROVIDERS: PCP Family Medicine; Referring Provider Family Medicine; Visit Provider Surgery
DX: N61.1 Abscess of the breast and nipple (principal)
CPT/HCPCS: 99213

== ENCOUNTER → 2023-04-01 15:18 | Outpatient (BNVA) | payer MEDICAID, SELFPAY | PROVIDERS: PCP Family Medicine; Visit Provider Surgery | DX: N61.1 Abscess of the breast and nipple (principal) | CPT/HCPCS: 99212 ==

== ENCOUNTER 2023-05-04 15:03 | Outpatient (AMB) | payer MEDICAID, SELFPAY ==
[2023-05-04 15:05] VITALS: BP 129/72; PULSE 63; BMI 29.0
--- NOTE | 2023-05-04 15:05 | MHC.OFFVIS ---
Intake Vital Signs 05/04/23 15:05 Height 5 ft Weight 148 lb 8 oz BMI 29.0 BP 129/72 Blood Pressure Location Rt brachial Position Sitting Pulse 63 Pulse Source Pulse Oximeter Intake Visit Reasons: one month follow-up breast infection Intake Note: Pt presents to the office today for a one month follow up for a breast infection. She states that it was hot to the touch for a little time but she states it is feeling better than it was before. Business Support Administrator Required: Yes Business Support Administrator Language: Silk Washing Machine Operator Name: [id number] Allergies No Known Allergies [No Known Allergies*] Allergy (Verified 05/04/23 15:10) HPI HPI Comments History of Present Illness Details patient returns for follow-up examination. She feels much improved with no further pain, redness or discharge. She completed the antibiotics and denies any ongoing breast symptoms. [facility] Medical History Hearing impaired Surgical History Hx of breast surgery (01/28/22) Family History Other Unknown family medical history Social History Alcohol intake: current Alcohol intake frequency: holidays/special occasions only Patient Tobacco Use Status: Never used Tobacco Physical Exam Vital Signs: Last Vital Signs Pulse 63 05/04/23 15:05 BP 129/72 05/04/23 15:05 BMI result Body Mass Index 29.0 Const General: comfortable Nutritional Appearance: well nourished Orientation/consciousness: patient oriented x3 Chest Other: Right breast examination reveals no further evidence of infection/ abscess. No tenderness to palpation. Scar tissue from previous infection but no evidence of acute skin changes. Neuro General: patient oriented x3 Assessment & Plan Assessment & Plan (1) Breast abscess of female: Code(s): N61.1 - Abscess of the breast and nipple Plan Patient is much improved with no further right breast infection. She should follow up as needed. Coding Level of Care Code Est Pt Level 3 (08894) Diagnoses Breast abscess of female N61.1
== END 2023-05-04 15:20 | disposition home or self-care (01) ==
PROVIDERS: PCP Family Medicine; Visit Provider Surgery
DX: N61.1 Abscess of the breast and nipple (principal)
CPT/HCPCS: 99213

== ENCOUNTER → 2023-05-04 15:03 | Outpatient (BNVA) | payer MEDICAID, SELFPAY | PROVIDERS: PCP Family Medicine; Visit Provider Surgery | DX: N61.1 Abscess of the breast and nipple (principal) | CPT/HCPCS: 99212 ==